=== PATIENT | male | born 1970 | race Two or more races ===

== ENCOUNTER 2022-01-21 11:06 | Emergency (ER) | payer MEDICAID, OTHER ==
[~2022-01-21] VITALS: Ht 172.7 cm; Wt 110.0 kg
[2022-01-21 12:14] VITALS: BP 129/81
[2022-01-21] MEDS ORDERED: KETOROLAC TROMETH 60MG/2ML VIAL IM ONE (12:30)
[2022-01-21] MEDS ORDERED: IBUP800T27 PO (13:34)
[2022-01-21] MEDS ORDERED: CYCL-837 PO (13:34)
== END 2022-01-21 13:46 | disposition home or self-care (01) ==
LOC: ER 11:06
DX: U07.1 COVID-19 (principal); M79.605 Pain in left leg; I10 Essential (primary) hypertension; E78.5 Hyperlipidemia, unspecified
CPT/HCPCS: 36415; 87426; 93971; 96372; 99284; J1885